=== PATIENT | female | born 1995 | race Caucasian/White ===

== ENCOUNTER 2025-07-13 08:31 | Emergency (ER) | payer SELFPAY ==
[2025-07-13 08:35] VITALS: BP 141/102
--- NOTE | 2025-07-13 09:05 | ED.GENMED ---
History of Present Illness
General
Chief Complaint: Chest Pain
Source: patient
Exam Limitations: none
Time Seen by Provider: 07/13/25 08:46
History of Present Illness
History of Present Illness:
See MDM
Past History
Past History
ED Past Medical History: None
ED Past Surgical History: None
Social History
Tobacco: Non-smoker
Alcohol: None
Phy Exam
Physical Exam
Physical Exam:
See MDM
Scores
Heart Score for Chest Pain Patients
STEMI patient?: No
History: Slightly or Non-Suspicious
ECG: Normal
Age: </= 45 years
Risk Factors: No Risk Factors
Troponin: </= Normal Limit
Heart Score for Chest Pain Patients: 0
Heart Score Risk: 2.5% MACE over next 6 weeks
Course
Orders/Labs/Results
Orders:
Orders
07/13/25 08:39
EKG [Electrocardiogram (*1)] Urgent
Reason for Study: Chest Pain
EKG- Treatment ONCE
07/13/25 09:04
0.9% Sodium Chloride 1000 ml [Nss] 1,000 ml IV BOLUS
Ketorolac [Toradol] 30 mg IV NOW STA
Mag Hydrox/Al Hydrox/Simeth [Maalox] 30 ml Phenobarb/Hyoscy/Atropine/Scop [] 10 ml Viscous Lidocaine 2% [Xylocaine Viscous Cup] 10 ml PO NOW
Test Result ONCE
CR Chest - 2 Views Urgent
Comment:
Reason For Exam: chest and back pain
US Abdomen Complete/Upper Urgent
Comment:
Reason For Exam: RUQ pain
07/13/25 09:08
Complete Blood Count/With Diff Urgent
Comprehensive Metabolic Panel Urgent
HCG, Serum Qualitative Screen Urgent
Lipase Urgent
Urinalysis Reflex To Culture Urgent
Date Specimen was Collected: 07/13/25
Time Specimen was Collected: 09:07
Urine Microscopic Reflex Cult Urgent
07/13/25 09:09
Phenobarb/Hyoscy/Atropine/Scop [] 10 ml .ROUTE .STK-MED ONE
07/13/25 09:10
Mag Hydrox/Al Hydrox/Simeth [Maalox] 30 ml .ROUTE .STK-MED ONE
Viscous Lidocaine 2% [Xylocaine Viscous Cup] 15 ml .ROUTE .STK-MED ONE
Abnormal Lab Results
07/13/25
09:08
Chloride 108 H mmol/L
(98-107)
Glucose 100 H mg/dl
(70-99)
Calcium 10.4 H mg/dl
(8.4-10.2)
Ur Occult Blood Reflex 3+ A
(Negative)
Urine RBC 3-6 A /HPF
(0-2)
Urine Bacteria (Reflex) Few A
(Negative)
07/13/25 09:08
07/13/25 09:08
Vital Signs
Initial and Last Documented VS:
Initial Vital Signs
Temp Pulse Resp BP Pulse Ox
98.2 F 82 16 141/102 97
07/13/25 08:35 07/13/25 08:35 07/13/25 08:35 07/13/25 08:35 07/13/25 08:35
Last Documented Vital Signs
Temp Pulse Resp BP Pulse Ox
98.6 F 60 18 117/85 97
07/13/25 09:18 07/13/25 10:45 07/13/25 10:45 07/13/25 10:00 07/13/25 11:00
MDM/Problems Addressed
Differential Diagnosis Includes:
Note:
CHIEF COMPLAINT(S)
The patient is experiencing chest pain radiating from the sternum associated with dizziness.
HISTORY OF PRESENT ILLNESS
The patient is a 29-year-old female who presented with chest pain that began abruptly at 2 AM while she was asleep. She reported waking from sleep due to intense pain in the sternum, radiating to the back, and described difficulty finding a
comfortable position. The patient noted feeling dizzy at times and experiencing a wave of nausea. She also had an increased urge to urinate without associated dysuria. The patient took Pepto-Bismol and Tums, followed by Tylenol, which provided
partial relief. There is no known history of medical issues. The patient denied chest pain on exertion, reports no change in diet, and doesn't smoke. Upon examination, she indicated localized discomfort in the epigastric region, and expressed that
the pain did not intensify with palpation. The patient had had mounting nausea but no additional discomfort when palpitating the abdomen region anteriorly.
PAST MEDICAL AND SURGICAL HISTORY
None reported.
MEDICATIONS
Currently taking oral contraceptives for control.
PHYSICAL EXAM
General: Alert, no acute distress.
Skin: Warm, dry.
Head: Normocephalic, atraumatic
Neck: Appears supple, trachea midline.
Eyes, Ears, Nose, Mouth, and Throat: Moist mucous membranes
Cardiovascular: No signs of cyanosis. Regular rate and rhythm
Respiratory: Respirations are non-labored. Lungs clear
Abdomen: Non-distended. Mild right upper quadrant tenderness
Musculoskeletal: No deformities
Neurological: No focal neurological deficit observed.
Psychiatric: Cooperative, appropriate mood and affect.
PROBLEM LIST
- Acute: Chest pain, dizziness, waves of nausea, increased urge to urinate.
PLAN
- Obtain chest X-ray to assess any potential issues outside the heart.
- Conduct blood work to evaluate for underlying causes.
- Administer anti-nausea medication and ketorolac (Toradol) for pain relief.
- Offer a gastrointestinal cocktail for symptom relief.
- Consider an abdominal ultrasound to evaluate for possible gallstones based on symptoms.
- Follow up with a specialist if gallstones are identified and seem symptomatic for surgical evaluation.
DIFFERENTIAL DIAGNOSIS
The Differential Diagnosis includes, in no particular order and is not limited to:
- Gastroesophageal reflux disease (GERD)
- Gallstones (cholelithiasis)
- Peptic ulcer disease
- Acute gastritis
- Costochondritis
- Pulmonary embolism
- Myocardial ischemia
- Esophageal spasm
- Biliary colic
- Pancreatitis
My independent EKG interpretation is:
- Time of EKG not specified
- Rhythm: Sinus bradycardia
- Heart rate: 59 beats per minute
- Ferris: Normal
- Notable abnormalities: ST elevation
07/13/25 - 12:39
Patient reports significant improvement in symptoms. Recent workup revealed gallstones, but no other concerning findings. Mild hematuria was noted; outpatient follow-up is planned to address this.
SUMMARY OF ENCOUNTER
The patient, a 29-year-old female, presented to the emergency department with concerns for indigestion. She reported abrupt onset chest pain radiating from the sternum, accompanied by dizziness and nausea. Initial management focused on ruling out
gastrointestinal and cardiac causes. Despite her concerns, both the chest X-ray and blood work did not indicate any acute abnormalities, though mild hematuria was noted. An abdominal ultrasound revealed gallstones, suggesting the possibility of
symptomatic cholelithiasis. Discussions included potential gallstone-related symptoms and follow-up with her primary care physician and a general surgeon for further evaluation and management.
DISPOSITION
Discharge.
ASSESSMENT
The presenting symptoms and findings suggest symptomatic cholelithiasis. The incidental finding of hematuria warrants follow-up as part of outpatient care.
EMERGENCY TREATMENTS ADMINISTERED
Administration of anti-nausea medication and ketorolac for pain relief, along with a gastrointestinal cocktail to alleviate symptoms.
PLAN
The patient was advised to follow up with her primary care doctor to evaluate the hematuria further and schedule an appointment with a general surgeon for a comprehensive evaluation of the gallstones. Outpatient management was deemed appropriate
given the absence of acute findings and the patient�s symptom improvement.
INDEPENDENT REVIEW OF LABS AND INTERPRETATION OF TESTS
- My independent review of the chest X-ray shows no evidence of acute pulmonary or cardiac pathology.
ADDITIONAL TESTING AND IMAGING CONSIDERED
An abdominal ultrasound was considered to evaluate potential gallstones, which was confirmed with the presence of cholelithiasis.
PATIENT EDUCATION AND COUNSELING
The patient was educated about the potential implications of gallstones and the necessity of follow-up care to manage symptomatic cholelithiasis effectively. The incidental finding of hematuria and its possible causes were also explained,
emphasizing the importance of further evaluation.
FOLLOW-UP INSTRUCTIONS
Please schedule a follow-up visit with the primary care physician and a general surgeon to address gallstones and discuss further management.
MEDICATION RECONCILIATION
Anti-nausea medication and ketorolac (Toradol) were administered for pain relief during the visit.
MEDICAL DECISION MAKING
- Number and Complexity of Problems Addressed: Chronic conditions affecting care involve symptomatic cholelithiasis and incidental hematuria. The Differential Diagnosis included GERD, gallstones, peptic ulcer disease, acute gastritis,
costochondritis, pulmonary embolism, myocardial ischemia, esophageal spasm, biliary colic, and pancreatitis.
- Data:
Category 1:
- My independent interpretation of the EKG: Sinus Bradycardia, heart rate 59 bpm, normal axis, no ST elevation.
- My independent interpretation of the chest X-ray: No acute findings.
-Risk: Prescription medication administered includes ketorolac and anti-nausea medication. Consideration of Admission/Observation: Escalation of care, including admission/observation, was considered given the complexity and risk of the patients
presenting complaint, exam findings, and/or their underlying comorbidities. However, ultimately the patient was deemed safe for outpatient management with close follow-up. Reasoning: Work-up reassuring, does not reveal any acute
life/organ-threatening processes, patients symptoms well controlled upon reevaluation, reexamination is reassuring, vitals are stable, patient agreeable with discharge, reliable for follow-up.
DIAGNOSIS
- Symptomatic cholelithiasis (ICD-10: K80.20)
- Incidental hematuria (ICD-10: R31.9)
*Pulse Oximetry
SaO2: 97
Oxygen Mode of Delivery: Room air
Patient hypoxic: no
*Critical Care Note
Total Time (30-74mins, 75-104mins- exclusive of procedures): Not Applicable
ED Attending Note
-
Portions of this chart may have been created with voice recognition software.� Occasional wrong word or��sound alike� substitutions may have occurred due to the inherent limitations of voice recognition software.
Discharge Plan
Departure
Patient Disposition: Home (Routine Discharge)
Date of Disposition: 07/13/25
Time of Disposition: 12:40
Patient with high blood pressure during this ER visit?: No
Discharge Problem:
Symptomatic cholelithiasis
Instructions: Gallstones - ED (DC)
Prescriptions:
No Action
No Current Medications
0
Referrals:
Serge Hand MD [Family Provider, Family Practice]
Harshal Mccullough MD [Active, Surgical]
Activity Restrictions/Additional Instructions:
Please return for any worsening symptoms.
You may return at any time if you have further concerns.
Please follow up with your doctor at the first available appointment, preferably this week. Please discuss your symptoms and the blood in your urine.
Please follow-up with surgery if symptoms persist.
Thank you for choosing [facility].
Interventions
Interventions:
*Risk Screen - Suicide Last Done: 07/13/25 08:35
*General Assessment Last Done: 07/13/25 09:18
*Neglect/Abuse Screening Last Done: 07/13/25 08:35
*ED- Fall Risk Assessment Last Done: 07/13/25 09:18
*ED COVID-19 Vaccine History Last Done: 07/13/25 08:35
*ED Influenza Vaccine History Last Done: 07/13/25 08:35
ED- Cardiac Assessment Last Done: 07/13/25 09:18
Discharge Date and Time
Print Language: YAKUT
[2025-07-13] MEDS: MAALOX 50 PO (09:13)
[2025-07-13] MEDS: TORADOL 30 MG IV (09:14)
[2025-07-13] MEDS: NSS 1000 IV (09:15)
[2025-07-13 09:16] VITALS: BMI 24.7
[2025-07-13 09:18] VITALS: BP 112/100
[2025-07-13 09:21] LABS: Urine Character Clear (Clear)
[2025-07-13 09:23] LABS: Hematocrit 39.4 % (37.0-47.0); Hemoglobin 13.7 g/dL (12.0-16.0); Mean Corp Hgb Conc. 34.8 g/dL (33.0-37.0); Mean Corpuscular Volume 84.4 fL (81.0-99.0); Nucleated Red Blood Cells % 0 %; Platelet Count 279 10^3/uL (130-400); Red Cell Dist. Width 13.2 % (11.5-14.5)
[2025-07-13 09:37] LABS: HCG, Serum Qualitative Screen Negative
[2025-07-13 09:42] LABS: ALT (SGPT) 20 U/L (0-35); AST (SGOT) 21 U/L (14-36); Albumin 4.6 g/dl (3.5-5.0); Alkaline Phosphatase 63 U/L (38-126); Blood Urea Nitrogen 10 mg/dl (7-17); Calcium 10.4 mg/dl (8.4-10.2); Carbon Dioxide 23 mmol/L (22-30); Chloride 108 mmol/L (98-107); Estimated Creatinine Clearance 107 ml/min; Glucose 100 mg/dl (70-99); Lipase 134 U/L (23-300); Potassium 4.4 mmol/L (3.5-5.1); Sodium 139 mmol/L (135-145); Total Protein 7.7 g/dl (6.3-8.2); eGFR > 60.00
[2025-07-13 09:43] LABS: Urine Squamous Cell >30 /LPF (Few)
[2025-07-13 09:44] LABS: Urine White Cell 0-2 /HPF (0-5)
[2025-07-13 09:54] VITALS: BP 129/78
[2025-07-13 10:00] VITALS: BP 117/85
== END 2025-07-13 12:51 | disposition home or self-care (01) ==
LOC: EMR 08:31
PROVIDERS: EMERGENCY PHYSICIAN Student in an Organized Health Care Education/Training Program; FAMILY PHYSICIAN Family Medicine
DX: K80.20 Calculus of gallbladder without cholecystitis without obstruction (principal); R31.9 Hematuria, unspecified; R00.1 Bradycardia, unspecified; R07.89 Other chest pain; R42 Dizziness and giddiness; Z79.3 Long term (current) use of hormonal contraceptives
CPT/HCPCS: 96374; 96361; 99285; 71046; 76700; 80053; 81003; 81015; 83690; 84703; 85025; 93005